=== PATIENT | female | born 1955 | race Caucasian/White ===

== ENCOUNTER 2021-04-29 08:56 | Emergency (ER) | payer MEDICAID ==
[~2021-04-29] VITALS: Ht 162.6 cm; Wt 86.2 kg
[2021-04-29 09:12] VITALS: BP_SYST 149
[2021-04-29 10:19] VITALS: BP_SYST 149
== END 2021-04-29 10:20 | disposition home or self-care (01) ==
LOC: SED 08:56
DX: S62.667A Nondisplaced fracture of distal phalanx of left little finger, initial encounter for closed fracture (principal); W22.01XA Walked into wall, initial encounter; Y93.89 Activity, other specified; Y92.89 Other specified places as the place of occurrence of the external cause; Y99.8 Other external cause status
CPT/HCPCS: 73140-TC; 99283